=== PATIENT | male | born 1985 | race Two or more races ===

== ENCOUNTER 2022-04-04 22:27 | Emergency (ER) | payer BC, SELFPAY ==
--- NOTE | ~2022-04-04 | XR_ITS ---
EXAMINATION: XR HAND, RIGHT CLINICAL INFORMATION: Possible fracture postreduction COMPARISON: Right hand/wrist radiographs performed earlier the same date TECHNIQUE: PA and lateral views of the right hand. FINDINGS: Successful relocation of the previous fifth PIP joint dislocation. No fracture is identified. There is a small amount of soft tissue gas about the fifth MCP joint and fifth proximal phalanx. No radiodense foreign body. Joint spaces are maintained. XR/XR hand RT 2V IMPRESSION: 1. Successful relocation of the fifth finger PIP joint dislocation. No fracture identified. 2. Small amount of soft tissue gas about the fifth MCP joint and fifth proximal phalanx, presumably iatrogenic. Correlate clinically.
--- NOTE | ~2022-04-04 | XR_ITS ---
EXAMINATION: XR HAND, RIGHT CLINICAL INFORMATION: Injury COMPARISON: None TECHNIQUE: 4 views of the right hand FINDINGS: Dislocation at the fifth digit proximal interphalangeal joint. Palmar displacement of the middle phalanx in relation to the proximal phalanx with some foreshortening as well. No fracture seen. Alignment elsewhere is maintained. XR/XR hand wrist RT IMPRESSION: Dislocation at the fifth digit proximal interphalangeal joint.
[2022-04-04 22:28] VITALS: BP 127/72; PULSE 80; RESP 18; TEMP 36.3; O2SAT 98; BMI 28.1
--- NOTE | 2022-04-04 22:51 | ED.EXTPRO ---
HPI - Extremity Problem General Chief complaint: Extremity Injury, Upper Stated complaint: ? broken finger Time Seen by Provider: 04/04/22 22:41 Source: patient Mode of arrival: ambulatory Limitations: no limitations History of Present Illness HPI Narrative: This is a 37-year-old male presenting with right 5th digit pain times a few hours. Patient tells me around 20:45 patient was wrestling with his child, his finger got caught in his child sweatshirt, pulled back and twisted since then he has not been able to bend his pinky finger on his right hand reporting severe pain particularly with movement. Denies numbness and tingling. No previous injuries to right hand. Related Data Previous Rx's Medication Instructions Recorded oxycodone 5 mg capsule 5 mg PO BID PRN pain #10 caps 04/04/22 Allergies Allergy/AdvReac Type Severity Reaction Status Date / Time No Known Allergies Allergy Verified 04/04/22 22:32 Review of Systems Review of Systems: Constitutional : No Weight loss, No Fever, No Chills, No Fatigue, No Malaise ENT/Mouth : No sore throat, No Rhinorrhea Eyes: No Eye Pain, No Swelling, No Redness Cardiovascular : No Chest Pain, No SOB, No Dyspnea on Exertion, No Orthopnea, No Edema, No Palpitations Respiratory : No Cough, No Sputum, No Wheezing Gastrointestinal : No Nausea, No Vomiting, No Diarrhea, No Constipation, No abdominal Pain, No Hematochezia, No Melena Genitourinary : No Dysuria, No Urinary Frequency, No Hematuria, Musculoskeletal : + joint pain, No Myalgias, + Joint Swelling Skin : No Skin Lesions, No rash Neuro : No Weakness, No Numbness, No Dizziness, No Headache Psych : No Anxiety/Panic, No Depression All other systems reviewed and are negative Yes all other systems are reviewed and are negative [facility] Past Medical History Attestation statement: The following information was validated with the patient. Source: old records reviewed and nursing notes reviewed Social History Social History Advance Directives: No Advance Directives Information Provided: No Physical Exam Vital Signs: Vital Signs: Last Vital Signs Temp 97.3 F 04/04/22 22:28 Pulse 80 04/04/22 22:28 Resp 18 04/04/22 22:28 BP 127/72 04/04/22 22:28 Pulse Ox 98 04/04/22 22:28 O2 Del Method 04/04/22 22:28 BMI result Body Mass Index 28.1 vss Appearance: Alert.? Oriented X3.? No acute distress.? Head: Normocephalic, atraumatic, no step-offs or deformities Eyes: Pupils equal, round and reactive to light.? ENT: Pharynx normal.? Neck: Normal inspection.? Neck supple.? CVS: Normal heart rate and rhythm.? Pulses normal.? Respiratory: No respiratory distress.? Breath sounds normal.? Abdomen: Soft and nontender.? Skin: Skin warm and dry.? Normal skin color.? Normal skin turgor.? Extremities: No lower extremity edema.? No calf ttp. 5/5 strength to bilateral upper and lower extremities. Normal hand building pressure washer bilaterally. Capillary refill less than 2 seconds to bilateral upper extremity fingernails. Patient's right 5th digit noted to be deformed, likely dislocated unable to bend right 5th digit. 2+ radial pulses equal bilateral. Normal sensation to bilateral upper extremity digits. No wrist drop. Neuro: Oriented X 3.? No motor deficit.? No sensory deficit. CN 2-12 intact Course Reevaluation(s) Reevaluation #1: I tried using traction, counter traction to reduce finger however patient did not tolerate it well, a nerve block was done by my attending, counter traction and traction were used by me and my attending, post reduction films pending. Time: 23:18 Reevaluation #2: X-ray of right hand with successful reduction of the 5th finger PIP joint, no identified fracture. Small amount of soft tissue gas about the 5th MCP joint and 5th proximal phalanx presumably iatrogenic. Discussed the side of my attending who tells me no acute findings. Patient will be discharged with oxycodone and orthopedic follow-up. Educated patient on diagnosis and treatment plan, answered all question, patient verbalizes understanding. At this time patient will be discharged home, advised to return with new or worsening symptoms. Educated on worrisome signs and symptoms and when to return. At this time I feel comfortable discharge home. Time: 23:38 Medications Administered Discontinued Medications Generic Name Dose Route Start Last Admin Trade Name Freq PRN Reason Stop Dose Admin Lidocaine HCl 5 ml 04/04/22 23:18 04/04/22 23:20 Lidocaine Hcl 1 % Mpf 5 Ml Vial SUBCUT 04/04/22 23:19 5 ml ONCE ONE Administration Oxycodone HCl 5 mg 04/04/22 23:08 04/04/22 23:13 Oxycodone Hcl Immed Release 5 Mg Tablet PO 04/04/22 23:09 5 mg ONCE ONE Administration Medical Decision Making Medical Decision Making [facility] Narrative: 2300 37-year-old male presents with right pinky pain status post wrestling his son. Unable to bend that finger. Physical exam significant for No lower extremity edema.? No calf ttp. 5/5 strength to bilateral upper and lower extremities. Normal hand building pressure washer bilaterally. Capillary refill less than 2 seconds to bilateral upper extremity fingernails. Patient's right 5th digit noted to be deformed, likely dislocated unable to bend right 5th digit. 2+ radial pulses equal bilateral. Normal sensation to bilateral upper extremity digits. No wrist drop. Concerns for fracture and dislocation to right 5th digit. Unlikely neurovascular compromise, no signs of threatened limb. Plan at this time imaging, oxycodone for pain Differential Diagnosis Differential Diagnoses: The differential diagnosis associated with the presentation includes Concerns for fracture and dislocation to right 5th digit. Unlikely neurovascular compromise, no signs of threatened limb. Admission/Observation Consideration of admission/observation: Escalation of care including admission/observation considered Unlikely Critical Care Time Critical Care Time Critical Care Time: No Discharge Plan Discharge Clinical Impression: Dislocated finger Patient Disposition: Home, Self-Care Instructions: R.I.C.E. Treatment (ED), Finger Dislocation (ED) Additional Instructions: Take your medications as prescribed. If you were prescribed antibiotics today, it is important that you take your medication to their entirety, do not skip any doses, do not finish them early. Follow-up with your primary care provider this week. Follow-up with orthopedics Return to the emergency department with new or worsening symptoms. Such as fevers, chills, chest pain, shortness of breath, nausea, vomiting, dizziness, headache, vision changes, lethargy, numbness, tingling, severe pain or swelling, worsening pain changes in quality of pain Oxycodone has been sent to her pharmacy, please take this as prescribed, do not take this while driving or operating machinery, do not mix with alcohol. Again cause addiction. Do not share with anyone else. In case of emergency call 911 ?XR/XR hand wrist RT IMPRESSION: Dislocation at the fifth digit proximal interphalangeal joint. XR/XR hand RT 2V IMPRESSION: 1.? Successful relocation of the fifth finger PIP joint dislocation. No fracture identified. 2.? Small amount of soft tissue gas about the fifth MCP joint and fifth proximal phalanx, presumably iatrogenic. Correlate clinically. ? ? Prescriptions: New oxycodone 5 mg capsule 5 mg PO BID PRN (Reason: pain) Qty: 10 0RF Rx Instructions: Partial Fill upon patient request. Referrals: [facility] [place] [facility] [Provider Group] - 2 days Physician,Unknown J [Primary Care Provider] - 2 days Stand Alone Forms: Work/School Release
[2022-04-04] MEDS: oxyCODONE HCl Immed Release 5 MG TABLET PO (23:13)
[2022-04-04] MEDS: Lidocaine HCl 1 % MPF 5 ML VIAL SUBCUT (23:20)
== END 2022-04-04 23:44 | disposition home or self-care (01) ==
PROVIDERS: Emergency Provider Internal Medicine
DX: S63.256A Unspecified dislocation of right little finger, initial encounter (principal); M79.641 Pain in right hand; X58.XXXA Exposure to other specified factors, initial encounter; Y93.9 Activity, unspecified; Y92.009 Unspecified place in unspecified non-institutional (private) residence as the place of occurrence of the external cause; Y99.9 Unspecified external cause status
CPT/HCPCS: 26700; 73110; 73120; 73130; 99283; 99284

== ENCOUNTER 2022-04-17 12:08 | Outpatient (REF) | payer BC, SELFPAY ==
--- NOTE | ~2022-04-17 | FL_ITS ---
EXAMINATION: XR FLUOROSCOPY WITH IMAGES CLINICAL INFORMATION: Dislocation 5th digit PIP joint. COMPARISON: Right hand 04/17/2022. TECHNIQUE: Fluoroscopy Supervised By: Bushra Mackay MD Fluoroscopy Time: 10.1 seconds. DAP: 3696 Gy-cm2. Images: 4. FINDINGS: Fluoroscopy was utilized for correction of PIP joint 5th digit volar dislocation. FL/FL guidance in treatment room IMPRESSION: Fluoroscopy was provided for correction of PIP joint dislocation 5th digit.
--- NOTE | ~2022-04-17 | XR_ITS ---
EXAMINATION: XR HAND, RIGHT CLINICAL INFORMATION: Pain COMPARISON: 04/04/2022 TECHNIQUE: PA, lateral, and oblique views of the right hand. FINDINGS: No acute fracture there is mild volar angulation of the fifth PIP joint concerning for repeat dislocation. Correlate with point tenderness. XR/XR hand RT min 3V IMPRESSION: Mild volar angulation of the fifth PIP joint concerning for repeat dislocation. Correlate with point tenderness.
== END 2022-04-17 12:09 | disposition home or self-care (01) ==
LOC: HO.HOSX 12:08
PROVIDERS: Visit Provider Physician Assistant
DX: S63.251A Unspecified dislocation of left index finger, initial encounter (principal); S66.811A Strain of other specified muscles, fascia and tendons at wrist and hand level, right hand, initial encounter
CPT/HCPCS: 73130

== ENCOUNTER 2022-04-24 09:44 | Outpatient (REF) | payer BC, SELFPAY ==
--- NOTE | ~2022-04-24 | XR_ITS ---
EXAMINATION: XR HAND, RIGHT CLINICAL INFORMATION: Pain. COMPARISON: None TECHNIQUE: Four views of the right hand. FINDINGS: There is persistent flexion deformity at PIP joint 5th digit with mild palmar subluxation and moderate dorsal soft tissue swelling. There is no fracture or bony abnormality seen. XR/XR hand RT min 3V IMPRESSION: Recurrent flexion deformity PIP joint 5th digit. The findings are unchanged to the very first exam 04/17/2022 at 2:28 PM.
== END 2022-04-24 09:45 | disposition home or self-care (01) ==
LOC: HO.HOSX 09:44
PROVIDERS: Visit Provider Orthopaedic Surgery
DX: S63.256A Unspecified dislocation of right little finger, initial encounter (principal); X58.XXXA Exposure to other specified factors, initial encounter; Y93.9 Activity, unspecified; Y92.9 Unspecified place or not applicable; Y99.9 Unspecified external cause status
CPT/HCPCS: 73130

== ENCOUNTER 2022-05-24 19:35 | Outpatient (REF) | payer BC, SELFPAY ==
--- NOTE | ~2022-05-24 | MR_ITS ---
EXAMINATION: MR HAND WITHOUT CONTRAST, RIGHT CLINICAL INFORMATION: Small finger pain, swelling. Dislocation 1 month ago. COMPARISON: Most recent right hand radiographs dated 04/24/2022. TECHNIQUE: Multisequence MR imaging of the right hand was obtained without contrast on a high-field strength scanner. FINDINGS: BONE: Flexion of the 5th proximal interphalangeal joint is redemonstrated. There appears to be mild deformity at the proximal phalangeal head and middle phalangeal base, which could indicate a remote fracture. Minimal associated marrow edema. Articular cartilage loss with small marginal osteophytes, likely indicating secondary osteoarthritis. Bone detail somewhat limited on MR examination. MUSCLES/TENDONS: Intact. LIGAMENTS: Mild thickening of the 5th proximal interphalangeal ulnar and radial collateral ligaments which could represent remote sprain/partial tears. SOFT TISSUES: Mild soft tissue edema within the 5th finger. No organized fluid collection or soft tissue mass. MR/MR hand RT wo con IMPRESSION: 1. Flexion of the 5th proximal interphalangeal joint is redemonstrated. There appears to be mild deformity at the proximal phalangeal head and middle phalangeal base, which could indicate a remote fracture. Minimal associated marrow edema. Articular cartilage loss with small marginal osteophytes, likely indicating secondary osteoarthritis. 2. Mild thickening of the 5th proximal interphalangeal ulnar and radial collateral ligaments which could represent remote sprain/partial tears. 3. Mild soft tissue edema within the 5th finger. No organized fluid collection or soft tissue mass.
== END 2022-05-24 19:36 | disposition home or self-care (01) ==
LOC: HO.MRI 19:35
PROVIDERS: Visit Provider Physician Assistant
DX: S63.256A Unspecified dislocation of right little finger, initial encounter (principal); X58.XXXA Exposure to other specified factors, initial encounter; Y93.9 Activity, unspecified; Y92.9 Unspecified place or not applicable; Y99.9 Unspecified external cause status
CPT/HCPCS: 73218

== ENCOUNTER 2022-07-10 11:11 | Outpatient (REF) | payer BC, SELFPAY ==
--- NOTE | ~2022-07-10 | XR_ITS ---
EXAMINATION: XR HAND, RIGHT CLINICAL INFORMATION: Pain. COMPARISON: Radiograph right hand 04/24/2022. MR right hand 05/24/2022. TECHNIQUE: Four views of the right hand. FINDINGS: Again noted flexion of the fifth proximal interphalangeal joint with subtle deformity at the proximal phalangeal head and middle phalangeal base mild associated soft tissue thickening. Findings are not significantly changed compared to priors. No interval injury. No unexpected radiopaque foreign bodies. XR/XR hand RT min 3V IMPRESSION: Flexion of the fifth proximal interphalangeal joint with subtle deformity of the proximal phalangeal head and middle phalangeal base, not significantly changed compared to priors.
== END 2022-07-10 11:12 | disposition home or self-care (01) ==
LOC: HO.HOSX 11:11
PROVIDERS: Visit Provider Orthopaedic Surgery
DX: S63.25 Unspecified dislocation of other finger (principal); X58.XXXD Exposure to other specified factors, subsequent encounter
CPT/HCPCS: 73130